=== PATIENT | female | born 1955 | race Caucasian/White ===

== ENCOUNTER 2019-05-04 17:31 | Emergency (ER) | payer MEDICAID, MEDICARE, OTHER ==
--- NOTE | 2019-05-04 19:11 | EDM.PDOC ---
ED HPI GENERAL MEDICAL PROBLEM - General Chief Complaint: Neuro Symptoms/Deficits Stated Complaint: CONFUSION Time Seen by Provider: 05/04/19 18:55 Source of Information: Reports: Patient, Family History Limitations: Reports: No Limitations - History of Present Illness INITIAL COMMENTS - FREE TEXT/NARRATIVE: 63-year-old female in for evaluation because of temporary confusion earlier today. For approximately one to 2 hours around 6 hours ago she was confused as to the date and just seemed "off". She's been fine since, had no physical symptoms, but her sister thought she should get checked. 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 When she gets tired she does have periods of confusion and she stayed up late last night watching a baseball game. They were just concerned she might of had another "stroke". She takes a low-dose aspirin daily and has not missed any of her medications. She feels fine now. Onset: Sudden Duration: Hour(s): (Lasted 1-2 hours) Associated Symptoms: Reports: No Other Symptoms - Related Data Allergies Allergy/AdvReac Type Severity Reaction Status Date / Time esomeprazole [From Nexium] Allergy Headache Verified 05/04/19 18:42 lansoprazole [From Prevacid] Allergy Headache Verified 05/04/19 18:42 rabeprazole [From AcipHex] Allergy Headache Verified 05/04/19 18:42 ticlopidine [From Ticlid] Allergy Headache Verified 05/04/19 18:42 Home Meds: Home Meds Allopurinol [Zyloprim] 100 mg PO BID 05/04/19 [History] Cetirizine [ZyrTEC] 1 tab PO DAILY 05/04/19 [History] Irbesartan [Avapro] 300 mg PO DAILY 05/04/19 [History] Magnesium 250 mg PO DAILY 05/04/19 [History] Metoprolol Tartrate 25 mg PO BID 05/04/19 [History] Ranitidine HCl [Ranitidine] 1 tab PO QID 05/04/19 [History] Simvastatin 20 mg PO BEDTIME 05/04/19 [History] Sucralfate 1 tab PO BID 05/04/19 [History] Triamterene/Hydrochlorothiazid [Triamterene-HCTZ 37.5-25 MG] 1 tab PO DAILY 12/17 [History] amLODIPine Besylate [Amlodipine Besylate] 10 mg PO DAILY 05/04/19 [History] Past Medical History HEENT History: Reports: Impaired Vision Cardiovascular History: Reports: High Cholesterol, Hypertension [employer]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: Neurological History: Reports: CVA - Past Surgical History HEENT Surgical History: Reports: Tonsillectomy Female Surgical History: Reports: Tubal Ligation Social & Family History - Caffeine Use Caffeine Use: Reports: None ED ROS GENERAL - Review of Systems Review Of Systems: See Below Constitutional: Denies: Fever, Chills HEENT: Reports: No Symptoms Respiratory: Denies: Shortness of Breath Cardiovascular: Denies: Chest Pain GI/Abdominal: Denies: Abdominal Pain, Nausea, Vomiting : Reports: No Symptoms Neurological: Reports: Other (Chronic expressive aphasia and right-sided weakness due to previous stroke) ED EXAM, NEURO - Physical Exam Exam: See Below Exam Limited By: No Limitations General Appearance: Alert, No Apparent Distress Eye Exam: Bilateral Eye: Normal Inspection Throat/Mouth: Normal Inspection Head Exam: Atraumatic Neck: Supple, Non-Tender Respiratory/Chest: No Respiratory Distress, Lungs Clear Cardiovascular: Regular Rate, Rhythm. No: Extra Beats GI/Abdominal: Non-Tender Neurological: Alert, Normal Mood/Affect, Oriented x 3, Other (Some mild right- sided weakness which is chronic, also persistent expressive aphasia also chronic and unchanged) Extremities: No: Pedal Edema Psychiatric: Normal Affect, Normal Mood Skin Exam: Warm, Dry Course - Vital Signs Last Recorded V/S: Last Vital Signs Temp 96.1 F 05/04/19 18:39 Pulse 69 05/04/19 18:39 Resp 16 05/04/19 18:39 BP 149/73 H 05/04/19 18:39 Pulse Ox 98 05/04/19 18:39 - Re-Assessments/Exams Free Text/Narrative Re-Assessment/Exam: 05/04/19 19:59 Further discussing the patient's history, she had some similar symptoms a couple years ago and had a full evaluation at [facility] [place] arteriography and cardiac workup. 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 No surgery was recommended. I think because her symptoms were brief, mild, and completely resolved no further workup is necessary at this time but a full dose aspirin versus low-dose for the next 7 days may be beneficial. I would like her to discuss her symptoms with her primary provider in the next 1-2 weeks to consider any further workup or staying on a full dose aspirin. Departure - Departure Time of Disposition: 19:33 Disposition: Home, Self-Care 01 Condition: Good Clinical Impression: TIA (transient ischemic attack) - Discharge Information Instructions: Transient Ischemic Attack, [id number] Referrals: Zabrina Bob CNM [Primary Care Provider] - Forms: ED Department Discharge Care Plan Goals: Consider a full dose aspirin daily for the next 7 days, and return anytime is symptoms recur especially if they are persistent. Recheck with Zabrina Bob in 1-2 weeks to discuss any further evaluation or treatment needed.
== END 2019-05-04 19:20 | disposition home or self-care (01) ==
LOC: JP.ED 17:31
DX: G45.9 Transient cerebral ischemic attack, unspecified (principal); I10 Essential (primary) hypertension; E78.00 Pure hypercholesterolemia, unspecified; Z79.899 Other long term (current) drug therapy; Z88.8 Allergy status to other drugs, medicaments and biological substances
CPT/HCPCS: 99284

== ENCOUNTER 2022-05-02 08:13 | Day surgery (SDC) | payer MEDICARE, MEDICAID ==
[2022-05-02] MEDS ORDERED: Sodium Chloride 0.9% 1,000 ML IV SCH (08:30)
[2022-05-02] MEDS ORDERED: fentaNYL 100 MCG/2 ML SDV ONE (09:17)
[2022-05-02] MEDS ORDERED: Midazolam 1 MG/ML 2 ML SDV ONE (09:17)
[2022-05-02] MEDS ORDERED: Propofol 200 MG/20 ML SDV ONE (09:17)
== END 2022-05-02 11:35 | disposition home or self-care (01) ==
LOC: JP.SDS 08:13
PROVIDERS: ATTEND Surgery
DX: K21.00 Gastro-esophageal reflux disease with esophagitis, without bleeding (principal); K29.80 Duodenitis without bleeding; K29.50 Unspecified chronic gastritis without bleeding; K31.A0 Gastric intestinal metaplasia, unspecified; I12.9 Hypertensive chronic kidney disease with stage 1 through stage 4 chronic kidney disease, or unspecified chronic kidney disease; N18.9 Chronic kidney disease, unspecified; J44.9 Chronic obstructive pulmonary disease, unspecified; E66.9 Obesity, unspecified; Z79.899 Other long term (current) drug therapy; Z79.83 Long term (current) use of bisphosphonates; Z79.810 Long term (current) use of selective estrogen receptor modulators (SERMs); Z88.6 Allergy status to analgesic agent; Z88.1 Allergy status to other antibiotic agents; Z88.8 Allergy status to other drugs, medicaments and biological substances
CPT/HCPCS: 43239; J2250; J2704; J3010; J7030; 88305; 88342

== ENCOUNTER 2022-11-17 14:27 | Emergency (ER) | payer MEDICARE, MEDICAID ==
[2022-11-17] MEDS ORDERED: Sodium Chloride 0.9% 10 ML Syringe FLUSH PRN (14:29)
[2022-11-17] MEDS ORDERED: Sodium Chloride 0.9% 500 ML IV ONE (16:17)
[2022-11-17 16:50] LABS: ESTIMATED GFR 82 mL/min (>60)
[2022-11-17] MEDS ORDERED: Nitrofurantoin Monohydrate/Macrocrystalline 100 MG Cap PO ONE (18:07)
== END 2022-11-17 19:03 | disposition home or self-care (01) ==
LOC: JP.ED 14:27
DX: N39.0 Urinary tract infection, site not specified (principal); R63.0 Anorexia; R53.1 Weakness; E78.00 Pure hypercholesterolemia, unspecified; I12.9 Hypertensive chronic kidney disease with stage 1 through stage 4 chronic kidney disease, or unspecified chronic kidney disease; N18.30 Chronic kidney disease, stage 3 unspecified; J44.9 Chronic obstructive pulmonary disease, unspecified; K21.9 Gastro-esophageal reflux disease without esophagitis; M10.9 Gout, unspecified; Z86.73 Personal history of transient ischemic attack (TIA), and cerebral infarction without residual deficits; Z88.5 Allergy status to narcotic agent; Z88.8 Allergy status to other drugs, medicaments and biological substances; Z72.0 Tobacco use; Z68.23 Body mass index [BMI] 23.0-23.9, adult
CPT/HCPCS: 36415; 80053; 81001; 85025; 86140; 87086; 96360; 99284; A9270; J7040

== ENCOUNTER 2022-11-21 09:04 | Emergency (ER) | payer MEDICARE, MEDICAID ==
[2022-11-21] MEDS ORDERED: Sodium Chloride 0.9% 500 ML IV ONE ×4 (09:13→11:04)
[2022-11-21] MEDS ORDERED: Ondansetron 4 MG/2 ML SDV IVPUSH ONE (09:14)
[2022-11-21] MEDS: Sodium Chloride 0.9% 10 ML Syringe FLUSH PRN ×2 (09:22→11:46)
[2022-11-21] MEDS ORDERED: Sodium Chloride 0.9% 100 ML IV ONE (09:50)
[2022-11-21 09:55] LABS: ESTIMATED GFR 22 mL/min (>60)
[2022-11-21] MEDS ORDERED: Calcium Gluconate 1 GM in Sodium Chloride 0.9% 100 ML IV ONE (09:59)
[2022-11-21] MEDS ORDERED: 50% Dextrose in Water 50 ML Syringe IVPUSH ONE (10:00)
[2022-11-21] MEDS ORDERED: Iopamidol 612 MG/ML 100 ML Bottle IV SCH (10:00)
[2022-11-21] MEDS ORDERED: Glucagon,Human Recombinant 1 MG Vial IM PRN (10:00)
[2022-11-21] MEDS ORDERED: 50% Dextrose in Water 50 ML Syringe IVPUSH PRN (10:00)
[2022-11-21] MEDS ORDERED: Insulin Regular, Human 100 Units/ML 3 ML Vial IVPUSH ONE (10:00)
[2022-11-21] MEDS ORDERED: Sodium Bicarbonate 8.4% 50 MEQ/50 ML Syringe IVPUSH ONE (10:02)
[2022-11-21] MEDS ORDERED: Meropenem 1 GM in Sodium Chloride 0.9% 100 ML IV ONE (10:07)
[2022-11-21] MEDS: Sodium Chloride 0.9% 10 ML Syringe FLUSH ONE ×2 (10:24→10:40)
[2022-11-21] MEDS ORDERED: Iopamidol 612 MG/ML 100 ML Bottle IV PRN (10:30)
[2022-11-21] MEDS ORDERED: Sodium Chloride 0.9% 10 ML SDV FLUSH ONE (10:30)
[2022-11-21] MEDS ORDERED: Sodium Chloride 0.9% 50 ML IV SCH (10:30)
[2022-11-21] MEDS ORDERED: Heparin Sodium 5,000 Units/ML Vial IVPUSH ONE (11:32)
[2022-11-21] MEDS ORDERED: Heparin Sodium/D5W 25,000 UNITS/500 ML BAG IV SCH (11:45)
[2022-11-21] MEDS ORDERED: Norepinephrine Bit/D5W Premix 4 MG in Premix Bag 1 BAG IV SCH (12:00)
[2022-11-21 12:37] LABS: ESTIMATED GFR 26 mL/min (>60)
== END 2022-11-21 12:16 ==
LOC: JP.ED 09:04
DX: K55.8 Other vascular disorders of intestine (principal); E87.5 Hyperkalemia; E87.20 Acidosis, unspecified; N17.9 Acute kidney failure, unspecified; R74.01 Elevation of levels of liver transaminase levels; I69.30 Unspecified sequelae of cerebral infarction; I12.9 Hypertensive chronic kidney disease with stage 1 through stage 4 chronic kidney disease, or unspecified chronic kidney disease; N18.30 Chronic kidney disease, stage 3 unspecified; E78.00 Pure hypercholesterolemia, unspecified; Z72.0 Tobacco use; Z79.82 Long term (current) use of aspirin; Z79.899 Other long term (current) drug therapy; Z20.822 Contact with and (suspected) exposure to COVID-19; Z88.8 Allergy status to other drugs, medicaments and biological substances
CPT/HCPCS: 36415; 74177; 80053; 81001; 82550; 82803; 82947; 83605; 83690; 85025; 85610; 85730; 86140; 87040; 87086; 93005; 93010; 96361; 96365; 96367; 96375; 99285; J1644; J1815; J2185; J2405; J3370; J3490; J7040; J7050; Q9967; U0002